=== PATIENT | male | born 1955 | race Caucasian/White ===

== ENCOUNTER → 2017-12-06 | Outpatient (CLI) | payer BC | END | disposition home or self-care (01) | LOC: RADECHMAIN 11:52 | PROVIDERS: ATTEND Family Medicine | DX: I49.3 Ventricular premature depolarization (principal); I47.1 Supraventricular tachycardia | CPT/HCPCS: 93225; 93226 ==

== ENCOUNTER → 2020-06-10 | Outpatient (CLI) | payer MEDICARE, BC | END | disposition home or self-care (01) | LOC: LABWHC1 13:55 | PROVIDERS: ATTEND Otolaryngology | DX: K11.7 Disturbances of salivary secretion (principal) | CPT/HCPCS: 36415; 86038; 86235 ==

== ENCOUNTER 2020-07-24 07:23 | Day surgery (SDC) | payer MEDICARE, BC ==
[2020-07-21 14:50] VITALS: BMI 24.7
[~2020-07-24 07:23] MED LIST: LACTATED RINGERS 1,000 ML IV SCH; LIDOCAINE 1% (10MG/ML) FOR IV START INTRADERMA PRN
[2020-07-24 07:54] VITALS: TEMP 97
[2020-07-24 07:59] LABS: Glucose,Whole Blood 109 mg/dL (75-99)
[2020-07-24] MEDS ORDERED: GLYCOPYRROLATE 0.2 MG/ML 2 ML VIAL ONE (08:17)
[2020-07-24] MEDS ORDERED: PROPOFOL 10 MG/ML 20 ML VIAL IV ONE (08:17)
[2020-07-24] MEDS ORDERED: LIDOCAINE 1% INJ 10MG/ML (20 ML MDV) ONE (08:17)
--- NOTE | 2020-07-24 08:32 | P.GSHP ---
History of Present Illness H&P Date: 07/24/20 Chief Complaint: Screening colonoscopy This a 65-year-old male presents today for screening colonoscopy. Patient denies a significant GI complaints. Past Medical History Past Medical History: Diabetes Mellitus, Hyperlipidemia History of Any Multi-Drug Resistant Organisms: None Reported Past Surgical History: Hernia Repair Additional Past Surgical History / Comment(s): umbilical hernia repair Past Anesthesia/Blood Transfusion Reactions: No Reported Reaction Smoking Status: Former smoker - Past Family History Mother Family Medical History: No Reported History Medications and Allergies Home Medications Medication Instructions Recorded Confirmed Type Aspirin 81 mg PO DAILY 07/21/20 07/21/20 History Biotin 1,000 mcg PO DAILY 07/21/20 07/21/20 History Cholecalciferol [Vitamin D3 (25 1,000 unit PO DAILY 07/21/20 07/21/20 History Mcg = 1000 Iu)] Insulin Glargine [Lantus] 24 unit SQ HS 07/21/20 07/21/20 History Multivit-Min/FA/Lycopen/Lutein 1 each PO DAILY 07/21/20 07/21/20 History [Centrum Silver Men Tablet] Rosuvastatin [Crestor] 10 mg PO HS 07/21/20 07/21/20 History Zinc 50 mg PO DAILY 07/21/20 07/21/20 History lisinopriL [Zestril] 5 mg PO HS 07/21/20 07/21/20 History metFORMIN HCL 500 mg PO BID 07/21/20 07/21/20 History Allergies Allergy/AdvReac Type Severity Reaction Status Date / Time No Known Allergies Allergy Verified 07/24/20 07:51 Surgical - Exam Vital Signs Temp Pulse Resp BP Pulse Ox 97 F L 54 L 16 140/76 96 07/24/20 07:53 07/24/20 07:53 07/24/20 07:53 07/24/20 07:53 07/24/20 07:53 - General well developed, well nourished, no distress - Eyes PERRL - ENT normal pinna - Neck no masses - Respiratory normal expansion - Cardiovascular Rhythm: regular - Abdomen Abdomen: soft Results - Labs Abnormal Lab Results - Last 24 Hours (Table) 07/24/20 Range/Units 07:55 POC Glucose (mg/dL) 109 H (75-99) mg/dL Assessment and Plan Assessment: We'll perform screening colonoscopy
--- NOTE | 2020-07-24 08:34 | P.OP ---
Date of Procedure: 07/24/20 Preoperative Diagnosis: Screening colonoscopy Postoperative Diagnosis: Diverticulosis Procedure(s) Performed: Colonoscopy Anesthesia: MAC Surgeon: Ayush Bustillos Pathology: none sent Condition: stable Disposition: PACU Description of Procedure: The patient's placed on the endoscopy table in the lateral position. He received IV sedation. Digital rectal exam was performed which revealed no abnormalities. The flexible colonoscope was then placed patient anus passed throughout the entire colon. The ileocecal valve was visualized. The cecum, ascending and transverse colon appeared normal. In the descending and sigmoid colon is mild diverticular changes. There is no evidence of diverticula is. The scope was then brought back the rectum and this appeared normal. Scope withdrawn for patient.
[2020-07-24 08:40] VITALS: PULSE 63
[2020-07-24 08:52] VITALS: BP 108/74; RESP 17
== END 2020-07-24 09:20 | disposition home or self-care (01) ==
LOC: ORWHC2ENDO 07:23
PROVIDERS: ATTEND Surgery
DX: Z12.11 Encounter for screening for malignant neoplasm of colon (principal); K57.30 Diverticulosis of large intestine without perforation or abscess without bleeding; E11.9 Type 2 diabetes mellitus without complications; E78.5 Hyperlipidemia, unspecified; I10 Essential (primary) hypertension; Z87.891 Personal history of nicotine dependence; Z79.4 Long term (current) use of insulin; Z79.899 Other long term (current) drug therapy; Z79.82 Long term (current) use of aspirin; Z98.890 Other specified postprocedural states
CPT/HCPCS: J2001; J2704; G0121; 45378

== ENCOUNTER → 2021-02-10 | Outpatient (CLI) | payer MEDICARE ==
--- NOTE | 2021-02-10 08:57 | CTL ---
EXAMINATION TYPE: CT Low Dose Lung DATE OF EXAM ORDERED: 02/10/2021 COMPARISON: None HISTORY: . Low Dose CT Lung Screening CT DLP: 98.[address] CTDI: 2.7 mGy IV CONTRAST USED: None. SCREENING VISIT: First visit COMPARISON: None. TECHNIQUE: Low dose computed tomography scan was performed through the chest at 1 millimeter thick se ctions and reconstructed images in the coronal plane at [address] DIAGNOSTIC QUALITY: Satisfactory FINDINGS: LUNG NODULES: Not presentLeft lung: no nodules identified.Right lung: no nodules identified. LUNGS: COPD: Severity: Moderate Fibrosis: Severity: Mild Lymph nodes: None Other findings: None RIGHT PLEURAL SPACE: Effusion: None Calcification: None Thickening: None Pneumothorax: None LEFT PLEURAL SPACE: Effusion: None Calcification: None Thickening: None Pneumothorax: None HEART: Heart Size: Mildly enlarged Coronary calcification: Mild Pericardial effusion: None OTHER FINDINGS: Upper abdomen: No significant abnormality Bony thorax: Degenerative changes Supraclavicular region: No significant abnormality Other: Small hiatal hernia noted.I IMPRESSION: 1. No suspicious-appearing nodules identified. COPD and fibrotic changes seen. FOLLOW UP CT CHEST RECOMMENDATION: Follow-up screening in one year CT LUNG RAD: LUNG RAD CATEGORY 1 negative
--- NOTE | 2021-02-10 12:15 | US ---
EXAMINATION TYPE: US duplex aorta DATE OF EXAM: 02/10/2021 COMPARISON: NONE CLINICAL HISTORY: Z13.6 AAA SCREENING. Previous smoker. Difficult and limited exam due to overlying b owel gas EXAM MEASUREMENTS: Abdominal Aorta: Proximal: 2.4 x 2.6 x 2.5 cm Mid: 2.4 x 2.2 x 2.1 cm Distal: 2.3 x 2.3 x 2.4 cm Bifurcation: RT: 1.0 x 1.0 x 1.2 cm LT: 1.2 x 1.1 x 1.2 cm Moderate/severe amount of plaque visualized. Proximal portion appears to measure upper limits of norm al. IMPRESSION: No evidence for abdominal aortic aneurysm.
== END | disposition home or self-care (01) ==
LOC: RADUSWWP 07:28
PROVIDERS: ATTEND Family Medicine
DX: Z13.6 Encounter for screening for cardiovascular disorders (principal); Z12.2 Encounter for screening for malignant neoplasm of respiratory organs; J44.9 Chronic obstructive pulmonary disease, unspecified; Z87.891 Personal history of nicotine dependence
CPT/HCPCS: 71271; 93979

== ENCOUNTER → 2022-05-04 | Outpatient (CLI) | payer MEDICARE ==
--- NOTE | 2022-05-04 12:35 | CTL ---
EXAMINATION TYPE: CT Low Dose Lung DATE OF EXAM ORDERED: 05/04/2022 HISTORY: Z87.891 personal hx of tobacco use . Lung cancer screening CT DLP: 101.[address] CTDI: 2.6 mGy Automated exposure control for dose reduction was used. SCREENING VISIT: Follow-up. COMPARISON: CT Low Dose Lung cancer screening 02/10/2021. TECHNIQUE: Low dose computed tomography scan was performed through the chest at 1 mm thick sections a nd reconstructed images in multiple planes at 1 mm and [address] DIAGNOSTIC QUALITY: Satisfactory FINDINGS: LUNG NODULES: New right upper lobe 9 mm pulmonary nodule (series 4, image 78). LUNGS: COPD: Severity: Moderate Fibrosis: Severity: Mild Lymph nodes: None Other findings: None RIGHT PLEURAL SPACE: Effusion: None Calcification: None Thickening: None Pneumothorax: None LEFT PLEURAL SPACE: Effusion: None Calcification: None Thickening: None Pneumothorax: None HEART: Heart Size: Mildly Enlarged Coronary Calcification: Mild Pericardial Effusion: None OTHER FINDINGS: Upper abdomen: None Bony thorax: Degenerative changes. Supraclavicular region: None Other: Small hiatal hernia. IMPRESSION: 1. New right upper lobe 9 mm pulmonary nodule. 2. COPD and fibrotic changes redemonstrated. CT LUNG RAD AND CT CHEST RECOMMENDATION: Lung-Rad 4A Suspicious: Follow-up 3 month LDCT or PET/CT may be used when there is a > 8 mm solid component. S Modifier (other clinically significant findings): None
== END | disposition home or self-care (01) ==
LOC: RADCTMAIN 12:04
PROVIDERS: ATTEND Family Medicine
DX: Z12.2 Encounter for screening for malignant neoplasm of respiratory organs (principal); J44.9 Chronic obstructive pulmonary disease, unspecified; Z87.891 Personal history of nicotine dependence
CPT/HCPCS: 71271

== ENCOUNTER → 2022-06-18 | Outpatient (CLI) | payer MEDICARE ==
--- NOTE | 2022-06-20 08:45 | PE ---
EXAMINATION TYPE: PET CT fusion skull to thigh DATE OF EXAM: 06/18/2022 CLINICAL INDICATION:Male, 67 years old with history of R91.1 Lung Nodule; TECHNIQUE: Following the intravenous administration of 11.26 mCi of F-18 FDG, whole body images are performed from the skull base to the midthigh. Images are reviewed on the computer in the coronal, a xial, and sagittal planes. Reconstructed rotating images are created on independent workstation and reviewed on the computer. A non-contrast CT is performed in conjunction with the PET scan. Glucose level 119 mg/dL COMPARISON: CT 05/04/2022, PET/CT None, FINDINGS: Mediastinal SUV mean is 1.6. Hepatic parenchyma SUV mean is 1.8. SKULL BASE AND NECK: No suspicious FDG activity. CHEST, MEDIASTINUM, AND HILAR REGION: No suspicious FDG activity. Right upper lobe pulmonary nodule m easuring 8 mm with max SUV 0.5. ABDOMEN AND PELVIS: No suspicious FDG activity. Physiologic uptake throughout the bowel noted. OSSEOUS STRUCTURES: No suspicious FDG activity. OTHER CT: Atherosclerosis of the arterial vasculature. There is emphysematous changes. Moderate coron lou artery atherosclerosis. The heart is mildly enlarged. Scattered clonic diverticula. Left fat fill ed inguinal hernia. IMPRESSION: No abnormal FDG activity identified to suggest malignancy. Attention on follow-up CT imaging surveill ance for the pulmonary nodule.
== END | disposition home or self-care (01) ==
LOC: RADPETMAIN 12:51
PROVIDERS: ATTEND Family Medicine
DX: R91.1 Solitary pulmonary nodule (principal)
CPT/HCPCS: 78815; A9552

== ENCOUNTER → 2023-04-28 | Outpatient (CLI) | payer MEDICARE ==
[2023-04-28 16:20] LABS: African American GFR (CKD) >90 (>60 ml/min/1.73 sqM); Blood Urea Nitrogen 13 mg/dL (9-20); Non-African American GFR(CKD) 81 (>60 ml/min/1.73 sqM)
--- NOTE | 2023-04-28 17:04 | CT ---
EXAMINATION TYPE: CT angio chest CT DLP: 299.5 mGycm, Automated exposure control for dose reduction was used. DATE OF EXAM: 04/28/2023 4:45 PM COMPARISON: 06/18/2022 CLINICAL INDICATION:Male, 68 years old with history of R06.09 DYSPNEA; Difficulty breathing & SOB X 6 months. TECHNIQUE/CONTRAST: CTA scan of the thorax is performed with IV Contrast, patient injected with 100 CC mL of Isovue 370, MIP images are created and reviewed these are created on a separate workstation.. FINDINGS: Pulmonary Artery: There is no evidence for a filling defect within the pulmonary vasculature to sugge st acute pulmonary embolism. The pulmonary artery is of normal size. Lungs/Pleura: Moderate to severe emphysema changes. No evidence of focal consolidation, pleural effus ion or pneumothorax. Airway: Large airways are patent. Heart: Heart is within normal limits for size. Moderate coronary artery calcifications. Vasculature: No evidence of aortic aneurysm. Mediastinum: No gross evidence of adenopathy. Musculoskeletal: No acute osseous abnormalities Soft Tissues: Unremarkable. Lower neck: No significant findings. Upper Abdomen: Diffuse low-attenuation to the liver. IMPRESSION: 1. No evidence of pulmonary embolism. 2. Moderate to severe emphysema. 3. Hepatic steatosis. 4. Moderate coronary artery calcifications.
== END | disposition home or self-care (01) ==
LOC: RADCTMAIN 14:35
PROVIDERS: ATTEND Internal Medicine
DX: J43.9 Emphysema, unspecified (principal); K76.0 Fatty (change of) liver, not elsewhere classified; I25.10 Atherosclerotic heart disease of native coronary artery without angina pectoris; R06.09 Other forms of dyspnea
CPT/HCPCS: 82565; 84520; 71275; 36415; Q9967

== ENCOUNTER → 2023-06-24 | Outpatient (CLI) | payer MEDICARE ==
[2023-06-24 17:26] LABS: Prothrombin Time 11.1 sec (10.0-12.5)
[2023-06-25 02:06] LABS: Basophils # (A) 0.08 X 10*3/uL (0.00-0.10); Basophils % (A) 1.1 %; Eosinophils # (A) 0.04 X 10*3/uL (0.04-0.35); Eosinophils % (A) 0.5 %; HCT 51.1 % (39.6-50.0); HGB 16.4 g/dL (13.0-17.0); Lymphocytes # (A) 1.51 X 10*3/uL (0.90-5.00); Lymphocytes % (A) 20.3 %; MCH 31.1 pg (27.0-32.0); MCHC 32.1 g/dL (32.0-37.0); Mean Platelet Volume 10.8 FL (9.5-12.2); Monocytes % (A) 8.1 %; NRBC Per 100 WBC 0 X 10*3/uL (0.00-0.01); Neutrophils # (A) 5.18 X 10*3/uL (1.80-7.70); Neutrophils % (A) 69.6 %; Platelet Count 240 X 10*3/uL (140-440); RBC 5.27 X 10*6/uL (4.40-5.60); RDW 13.2 % (11.5-14.5); WBC 7.44 X 10*3/uL (4.50-10.00)
[2023-06-25 02:11] LABS: BUN/Creat Ratio 18.77 Ratio (12.00-20.00); Blood Urea Nitrogen 24.4 mg/dL (9.0-27.0); Calcium 10.1 mg/dL (8.7-10.3); Carbon Dioxide 22.6 mmol/L (21.6-31.8); Chloride 101 mmol/L (96-109); Glucose 257 mg/dL (70-110); Potassium 4.3 mmol/L (3.5-5.5); Sodium 137 mmol/L (135-145)
== END | disposition home or self-care (01) ==
LOC: LABWHC1 16:07
PROVIDERS: ATTEND Internal Medicine Cardiovascular Disease
DX: Z01.810 Encounter for preprocedural cardiovascular examination (principal)
CPT/HCPCS: 36415; 80048; 85025; 85610

== ENCOUNTER → 2023-07-28 | Outpatient (CLI) | payer MEDICARE ==
[2023-07-29 02:37] LABS: BUN/Creat Ratio 19.18 Ratio (12.00-20.00); Blood Urea Nitrogen 21.1 mg/dL (9.0-27.0); Glucose 140 mg/dL (70-110)
[2023-07-29 02:38] LABS: Calcium 10.2 mg/dL (8.7-10.3); Carbon Dioxide 20.9 mmol/L (21.6-31.8); Chloride 104 mmol/L (96-109); Potassium 4.3 mmol/L (3.5-5.5); Sodium 140 mmol/L (135-145)
== END | disposition home or self-care (01) ==
LOC: LABWHC1 15:00
PROVIDERS: ATTEND Internal Medicine
DX: N17.9 Acute kidney failure, unspecified (principal)
CPT/HCPCS: 36415; 80048

== ENCOUNTER → 2023-08-20 | Outpatient (CLI) | payer MEDICARE ==
[2023-08-20 11:51] LABS: African American GFR (CKD) 87 (>60 ml/min/1.73 sqM); Anion Gap 14 mmol/L; Blood Urea Nitrogen 26 mg/dL (9-20); Calcium 9.5 mg/dL (8.4-10.2); Carbon Dioxide 22 mmol/L (22-30); Chloride 102 mmol/L (98-107); Glucose 277 mg/dL (74-99); Non-African American GFR(CKD) 75 (>60 ml/min/1.73 sqM); Potassium 4.4 mmol/L (3.5-5.1); Sodium 138 mmol/L (137-145)
[2023-08-20 11:59] LABS: NT-Pro-B-Type Natriuretic Pept 1940 pg/mL
== END | disposition home or self-care (01) ==
LOC: LABWHC1 11:14
PROVIDERS: ATTEND Internal Medicine
DX: I27.20 Pulmonary hypertension, unspecified (principal); N17.9 Acute kidney failure, unspecified
CPT/HCPCS: 36415; 80048; 83880

== ENCOUNTER → 2023-12-23 | Outpatient (CLI) | payer MEDICARE ==
[2023-12-23 20:19] LABS: NT-Pro-B-Type Natriuretic Pept 883 pg/mL (0-125)
[2023-12-23 21:10] LABS: BUN/Creat Ratio 19.64 Ratio (12.00-20.00); Blood Urea Nitrogen 27.5 mg/dL (9.0-27.0); Carbon Dioxide 21.4 mmol/L (21.6-31.8); Chloride 102 mmol/L (96-109); Glucose 324 mg/dL (70-110); Potassium 4.5 mmol/L (3.5-5.5); Sodium 141 mmol/L (135-145)
== END | disposition home or self-care (01) ==
LOC: LABWHC1 11:11
PROVIDERS: ATTEND Nurse Practitioner Acute Care
DX: I50.812 Chronic right heart failure (principal); R60.9 Edema, unspecified
CPT/HCPCS: 36415; 80048; 83880

== ENCOUNTER → 2024-03-16 | Outpatient (CLI) | payer MEDICARE ==
[2024-03-17 02:14] LABS: Calcium 9.9 mg/dL (8.7-10.3); Carbon Dioxide 22.1 mmol/L (21.6-31.8); Chloride 102 mmol/L (96-109); Glucose 172 mg/dL (70-110); Potassium 4.5 mmol/L (3.5-5.5); Sodium 138 mmol/L (135-145)
[2024-03-17 02:36] LABS: NT-Pro-B-Type Natriuretic Pept 742 pg/mL (0-125)
== END | disposition home or self-care (01) ==
LOC: LABWHC1 16:05
PROVIDERS: ATTEND Nurse Practitioner Acute Care
DX: I27.20 Pulmonary hypertension, unspecified (principal)
CPT/HCPCS: 36415; 80048; 83880